=== PATIENT | female | born 1945 | race Two or more races ===

== ENCOUNTER 2017-06-11 17:57 | Emergency (ER) | payer OTHER ==
[~2017-06-11] VITALS: Ht 149.9 cm; Wt 49.9 kg
--- NOTE | ~2017-06-11 | CT18 ---
[facility] A Service of [facility] & [facility] RADIOLOGY TEXT RESULTS PATIENT: DANA MILLS LOCATION: SED : 44 UNIT #: [id number] AGE: [address]: David Mathis MD SEX: F ORDER DR: [id number] [facility] [address] [place], [place] [address] [id number] E MR#: [id number] Acc #: [id number] NAME: DANA MILLS : 1945 SEX: F STUDY DATE/TIME: 06/11/2017 19:01 UNIT: SED ROOM: STUDY DESCRIPTION: CT Angio Head Stroke Attending Physician: David Mathis M.D. Ordering Physician: David Mathis M.D. Primary Care Physician: Kary Banegas A.P.R.N. MEDICAL IMAGING REPORT This report is preliminary unless electronic signature is present EXAM CT angiogram of the head and neck HISTORY Focal neurologic deficit. Dizziness, shaking and headache today. History of hypertension, stroke and diabetes. FINDINGS CT angiography of the head and neck vessels performed during the intravenous administration of 80 mL of Isovue 370. Imaging acquired in the axial plane followed by multiple reconstructed and reformatted images for the purpose of 3-D CT angiography of the head and neck vessels. This CT examination was performed with one or more of the following radiation dose reduction techniques: automatic exposure control, adjustment of mA and/or kV according to patient size, and iterative reconstruction. There is an earlier head CT. Preliminary wet reading provided by Dr. Hawley 20:13 06/11/2017. There is a previous CT angiogram from 2008. CT ANGIOGRAM NECK: There is some vascular calcification at the arch. The aortic arch branch pattern is normal and there is no hemodynamically significant narrowing at great vessel origins from the arch. Assessment right carotid system shows 0% stenosis by NASCET criteria at the right carotid bifurcation. There is calcified plaque in the carotid siphon with [id number] stenosis of the supraclinoid ICA. Evaluation left carotid system shows 0% stenosis of the left carotid bifurcation. Moderate stenosis suspected in the left carotid siphon again due to calcified plaque. Bilaterally, the common carotid arteries are kinked and somewhat tortuous. The left vertebral artery is patent throughout the neck and intracranially. It supplies the basilar. The right vertebral artery is patent throughout the neck and intracranially and it supplies STS. [facility] A Service of [facility] & [facility] RADIOLOGY TEXT RESULTS PATIENT: DANA MILLS LOCATION: [facility] : 44 UNIT #: [id number] AGE: [address]: David Mathis MD SEX: F ORDER DR: the basilar. Evaluation of the intracranial circulation shows large bilateral posterior communicators with essentially origin to the posterior cerebral artery distributions. The basilar is probably of developmentally smaller caliber due to the anterior dominance of the circulation. There is mild fullness of the tip of the basilar. The left P1 vessel is hypoplastic and the right P1 vessel is very hypoplastic. There is no intracranial vascular cutoff. There is probably a tiny anterior communicator present. No focal central stenosis is suspected. The dural venous sinuses are patent. There are some emphysematous changes at upper lungs. There are some degenerative changes in the cervical spine. There is some encephalomalacia in the right lateral frontal lobe. See the earlier noncontrast head CT report. IMPRESSION 1. By NASCET criteria, there is no hemodynamically significant stenosis at either carotid bifurcation. 0% stenosis estimated. 2. Both common carotid arteries are tortuous and kinked. 3. There is no intracranial vascular cutoff. There is calcified plaque involving both carotid siphons resulting in some stenosis bilaterally. This was also present in 2009. See above. 4. Patient has an anterior dominant circulation. Both vertebral arteries are patent and supply the basilar but the basilar is of small caliber developmentally and there are large posterior communicators with origin to bilateral posterior cerebral artery distributions. This vascular pattern could predispose the patient to episodes of vertebrobasilar insufficiency if there is superimposed disease. Please correlate further clinically given presentation with dizziness. STAT * RESULT Dictated by... Pepper Aguilar M.D. THIS IS AN ELECTRONICALLY VERIFIED REPORT Pepper Aguilar M.D. at 06/24/2017 11:34 AM Gregoria TD: 06/24/2017 08:35 JOB #: [id number] MEDICAL IMAGING REPORT Page 1 of 1 COPY
--- NOTE | ~2017-06-11 | CT24 ---
[facility] A Service of [facility] & [facility] RADIOLOGY TEXT RESULTS PATIENT: DANA MILLS LOCATION: SED : 44 UNIT #: [id number] AGE: [address]: David Mathis MD SEX: F ORDER DR: [id number] [facility] [address] [place], [place] [address] [id number] E MR#: [id number] Acc #: [id number] NAME: DANA MILLS : 1945 SEX: F STUDY DATE/TIME: 06/11/2017 19:01 UNIT: [facility] ROOM: STUDY DESCRIPTION: CT Angio Neck Stroke Attending Physician: David Mathis M.D. Ordering Physician: [id number] Shaylee Mathis Primary Care Physician: Kary Banegas A.P.R.N. MEDICAL IMAGING REPORT This report is preliminary unless electronic signature is present EXAM CT angiogram of the neck FINDINGS Please see CT angiogram of the head for results. STAT * RESULT Dictated by... Pepper Aguilar M.D. THIS IS AN ELECTRONICALLY VERIFIED REPORT Pepper Aguilar M.D. at 06/12/2017 10:19 AM HALLE/edgardo TD: 06/12/2017 07:57 JOB #: [id number] MEDICAL IMAGING REPORT Page 1 of 1 COPY
--- NOTE | ~2017-06-11 | CT18 ---
[facility] A Service of [facility] & [facility] RADIOLOGY TEXT RESULTS PATIENT: DANA MILLS LOCATION: SED : 44 UNIT #: [id number] AGE: [address]: David Mathis MD SEX: F ORDER DR: [id number] [place] [id number] E MR#: [id number] Acc #: [id number] NAME: DANA MILLS : 1945 SEX: F STUDY DATE/TIME: 06/11/2017 19:01 UNIT: SED ROOM: STUDY DESCRIPTION: CT Angio Head Stroke Attending Physician: David Mathis M.D. Ordering Physician: [id number] Shaylee Mathis Primary Care Physician: Kary Banegas A.P.R.N. MEDICAL IMAGING REPORT This report is preliminary unless electronic signature is present. At this, 1/[address] angiogram neck. There is focal neurologic deficit, dizziness, shaking and headache today for history of hypertension, stroke and diabetes. CT angiography that present on this measures 80 mL by Isovue-370. Imaging from the axial plane followed by multiple reconstructed reformatted images for the purpose of 3-D CT angiography of the neck vessels. This is a dose reduction is patent. The earlier head CT. Preliminary wet reading by Dr. mustafa 20:13 06/11/2017. Previous CT and 1009. CT angiogram Neck: There is some vascular calcification at the arch. The aortic arch branch pattern is normal and there is no hemodynamically-significant narrowing at great vessel origins from the arch. Assessment right carotid system shows 0% stenosis by NASCET criteria. The right carotid bifurcation. There is some calcified plaque in the carotid siphon with [id number] stenosis of the supraclinoid ICA. Evaluation left carotid system shows there is a stenosis of left carotid bifurcation. Moderate stenosis suspected in the left carotid siphon again due to calcified plaque. Bilaterally the common carotid arteries are kinked 10 somewhat tortuous. The left vertebral artery is patent throughout the neck and intracranially. It supplies the basilar. The right vertebral artery is patent throughout the neck and intracranially and it supplies the basilar. Evaluation of the intracranial circulation shows large bilateral posterior communicators with essentially origin posterior cerebral artery distributions. The basilar is probably a developmentally smaller caliber of the anterior dominant circulation. There is mild fullness at the tip of the basilar. The left P1 vessel is hypoplastic and the right P1 STS. [facility] A Service of [facility] & [facility] RADIOLOGY TEXT RESULTS PATIENT: DANA MILLS LOCATION: SED : 44 UNIT #: [id number] AGE: [address]: David Mathis MD SEX: F ORDER DR: vessels very hypoplastic. There is no intracranial vascular cutoff. Probably a tiny anterior communicator present. No focal central stenosis is suspected. The dural venous sinuses are patent. There is some emphysematous changes in the upper lungs. There are some degenerative changes of the cervical spine. There is some encephalomalacia in the right lateral frontal lobe. See the earlier noncontrast head CT report. IMPRESSION By NASCET criteria there is no hemodynamically significant stenosis at either carotid bifurcation. 0% stenosis estimated. 2. Both common carotid arteries are tortuous and kinked. 3. There is no intracranial vascular cutoff. There is calcified plaque involving both carotid siphons resulting in some stenosis bilaterally. This is also present 2008. See above. 4. Patient has an anterior dominant circulation. Both vertebral arteries are patent. Supplied the basilar but the basilar is of small caliber developmentally and there are large posterior communicators with origin bilateral posterior cerebral artery distribution. This vascular pattern could predispose the patient to episodes of vertebrobasilar insufficiency. There is a superimposed disease. Please correlate further clinically given presentation with dizziness. Dictated by... Mich Avitia/edgardo TD: 06/12/2017 07:55 JOB #: [id number] MEDICAL IMAGING REPORT Page 1 of 1
--- NOTE | ~2017-06-11 | CR72 ---
[facility]. [facility] A Service of [facility] & [facility] RADIOLOGY TEXT RESULTS PATIENT: DANA MILLS LOCATION: SED : 43 UNIT #: [id number] AGE: [address]: David Mathis MD SEX: F ORDER DR: [id number] [place] [id number] E MR#: [id number] Acc #: [id number] NAME: DANA MILLS : 1945 SEX: F STUDY DATE/TIME: 06/11/2017 18:58 UNIT: SED ROOM: STUDY DESCRIPTION: CR Chest Single View Portable Attending Physician: David Mathis M.D. Ordering Physician: David Mathis M.D. Primary Care Physician: Kary Banegas A.P.R.N. MEDICAL IMAGING REPORT This report is preliminary unless electronic signature is present. EXAM Portable chest 06/11/2017 HISTORY 71-year-old female with dizziness beginning today. COMPARISON Chest 01/13/2012 FINDINGS Frontal chest demonstrates clear lungs. No pleural effusion or pneumothorax. Heart size and mediastinum are within normal limits. Pulmonary vasculature unremarkable. IMPRESSION No acute cardiopulmonary findings Dictated by... Tree Hawley M.D. THIS IS AN ELECTRONICALLY VERIFIED REPORT Tree Hawley M.D. at 06/12/2017 3:58 PM KYARA/uriel TD: 06/12/2017 05:24 JOB #: [id number] MEDICAL IMAGING REPORT Page 1 of 1
--- NOTE | ~2017-06-11 | EKG ---
PATIENT: DANA MILLS UNIT #: [id number] Ventricular Rate: 113 BPM Atrial Rate: 98 BPM QRS Duration: 78 ms Q-T Interval: 342 ms QTC Calculation(Bezet): 469 ms Calculated R [place]: 59 degrees Calculated T [place]: -106 degrees Diagnosis Line: Atrial fibrillation with rapid ventricular Diagnosis Line: response Diagnosis Line: T wave abnormality, consider inferolateral Diagnosis Line: ischemia or digitalis effect Diagnosis Line: Abnormal ECG Diagnosis Line: Diagnosis Line: Confirmed by JOHNATHAN LUONG MD ([id number]) on Diagnosis Line: 06/12/2017 12:56:52 PM INTERPRETING MD: CHERISE PEREZ
--- NOTE | ~2017-06-11 | CT72 ---
[facility] A Service of [facility] RADIOLOGY TEXT RESULTS PATIENT: DANA MILLS LOCATION: SED : 44 UNIT #: [id number] AGE: [address]: David Mathis MD SEX: F ORDER DR: [id number] [place] [id number] E MR#: [id number] Acc #: [id number] NAME: DANA MILLS : 1945 SEX: F STUDY DATE/TIME: 06/11/2017 18:34 UNIT: SED ROOM: STUDY DESCRIPTION: CT Head Wo Contrast Stroke Attending Physician: David Mathis M.D. Ordering Physician: David Mathis M.D. Primary Care Physician: Kary Banegas A.P.R.N. MEDICAL IMAGING REPORT This report is preliminary unless electronic signature is present. EXAM CT head without contrast 06/11/2017 HISTORY 71-year-old female with dizziness and headache beginning today. COMPARISON CT head 01/13/2012 TECHNIQUE Routine unenhanced axial images performed through the brain. This CT exam was performed with one or more of the following radiation dose reduction techniques: automatic control, adjustment of mA and/or kV according to patient size, and iterative reconstruction. FINDINGS No hemorrhage, acute infarction, mass lesion, or abnormal extraaxial fluid collection. No midline shift or focal mass effect. Ventricular system is normal in size and configuration. Remote infarct and encephalomalacia right frontal lobe is unchanged from 01/13/2012. Mild chronic small vessel disease noted in the supratentorial white matter. No acute bony abnormality. Visualized paranasal sinuses demonstrate a trace air-fluid level in the right sphenoid sinus. Visualized mastoid air cells are clear. IMPRESSION 1. No acute intracranial abnormality. 2. Remote infarct right frontal lobe, stable from 01/13/2012. 3. Mild chronic small vessel disease. 4. Trace air-fluid level right sphenoid sinus. 5. Results discussed with Dr. Mathis at the time of dictation. Dictated by... [facility] A Service of [facility] & [facility] RADIOLOGY TEXT RESULTS PATIENT: DANA MILLS LOCATION: [facility] : 44 UNIT #: [id number] AGE: [address]: David Mathis MD SEX: F ORDER DR: Tree Hawley M.D. THIS IS AN ELECTRONICALLY VERIFIED REPORT Tree Hawley M.D. at 06/12/2017 3:57 PM KYARA/uriel TD: 06/12/2017 04:17 JOB #: [id number] MEDICAL IMAGING REPORT Page 1 of 1
[~2017-06-11 17:57] MED LIST: ACETAMINOPHEN PO; AGGRENOX PO; ALLERGY RELIEF10 MG PO; AMOXICILLIN PO; AMOXICILLIN500 M1 PO; ASPIRIN PO; AVELOX400 MG PO; CALCIUM + D 6001 TA1 PO; CARTIA XT PO; CLARITIN10 MG PO; COUMADIN PO; COUMADIN3 MG PO; DARVOCET-N 1001 TAB PO; DIGITEK125 MCG PO; LIPITOR PO; LIPITOR40 MG PO; LOPRESSOR PO; METFORMIN HCL500 M1 PO; METFORMIN PO; NEURONTIN100 MG PO; OYSTER CALCIUM500 MG PO; RANITIDINE HCL150 M1 PO; V C FORTE; V-C FORTE PO; VIT E PO; VITAMIN B; VITAMIN B650 M1 PO; VITAMIN E400 UNI2 PO; ZANTAC PO
[2017-06-11] MEDS ORDERED: ELIQUIS2.5 MG (18:20)
[2017-06-11] MEDS ORDERED: TOPROL XL (18:20)
[2017-06-11] MEDS ORDERED: MELOXICAM7.5 MG (18:20)
[2017-06-11 18:40] LABS: POC - GFR >60.0 mL/min (>60)
[2017-06-11 18:52] LABS: POC - CKMB 2.4 ng/mL (0.0-7.9); POC - TROPONIN <0.05 ng/mL (<=0.05)
[2017-06-11 19:20] LABS: URINE SOURCE CLEAN CATCH
[2017-06-11 19:23] LABS: URINE APPEARANCE CLEAR; URINE BILIRUBIN NEG (NEG); URINE BLOOD 2+ (NEG); URINE COLOR YELLOW; URINE GLUCOSE NEG (NORM); URINE KETONE NEG (NEG); URINE LEUKOCYTE ESTERASE TRACE (NEG); URINE NITRATE NEG (NEG); URINE PH 6.5 (5-8); URINE PROTEIN NEG (NEG); URINE UROBILINOGEN 0.2 MG/DL (NORM)
[2017-06-11 19:32] LABS: MICRO INDICATED? YES
[2017-06-11 19:36] LABS: CULTURE INDICATED? NO; URINE BACTERIA NEG (NEG); URINE SQUAMOUS EPITHELIAL CELL OCCAS /[HPF]
== END 2017-06-11 19:25 | disposition hospice, home (50) ==
LOC: SED 17:57
PROVIDERS: Emergency Medicine
DX: I48.91 Unspecified atrial fibrillation (principal); E11.9 Type 2 diabetes mellitus without complications; Z79.899 Other long term (current) drug therapy
CPT/HCPCS: 70450; 70496; 70498; 71010; 81003; 82553; 82565; 82947; 84484; 93005; 96374; 99285; Q9967